=== PATIENT | male | born 1955 | race African-American/Black ===

== ENCOUNTER 2016-08-04 04:20 | Emergency (ER) | payer SELFPAY ==
[~2016-08-04] VITALS: Ht 170.2 cm; Wt 133.0 kg
[2016-08-04 04:23] VITALS: BP 220/110; PULSE 77; RESP 16; TEMP 98.9; O2SAT 100
[2016-08-04] MEDS ORDERED: KETOROLAC TROMETHAMINE 30 MG/ML (IVP) VIAL IV PUSH ONE (05:00)
--- NOTE | 2016-08-04 05:23 | RADRPT ---
EXAM DATE/TIME: 08/04/2016 04:56 [facility] COMPARISON: No previous studies available for comparison. INDICATIONS : Chest discomfort, swelling in lower extremities for 1 week MEDICAL HISTORY : None. SURGICAL HISTORY : None. ENCOUNTER: Initial ACUITY: 1 week PAIN SCORE: 0/10 LOCATION: Bilateral chest FINDINGS: PA and lateral views of the chest demonstrate the lungs to be symmetrically aerated without evidence of mass, infiltrate or effusion. The cardiomediastinal contours are unremarkable. Osseous structure s are intact. CONCLUSION: Normal examination. Avel Patel Jr., MD on August 04, 2016 at 5:21 Board Certified Radiologist. This report was verified electronically.
--- NOTE | 2016-08-04 05:24 | RADRPT ---
EXAM DATE/TIME: 08/04/2016 05:00 [facility] COMPARISON: No previous studies available for comparison. INDICATIONS : Left ankle pain, swelling for 1 week with no known injury MEDICAL HISTORY : None. SURGICAL HISTORY : None. ENCOUNTER: Initial ACUITY: 1 week PAIN SCORE: 10 LOCATION: Left entire ankle FINDINGS: 3 views of the ankle reveal abnormal appearance to the subtalar joints. There is osteophyte productio n and joint space narrowing. The remaining joint spaces are preserved. Soft tissue swelling surroundi ng the ankle. No discernible joint effusion. No fracture or dislocation. CONCLUSION: 1. Soft tissue swelling. 2. Degenerative changes involve the subtalar joints. This would suggest prior trauma. Avel Patel Jr., MD on August 04, 2016 at 5:22 Board Certified Radiologist. This report was verified electronically.
[2016-08-04 05:26] VITALS: BP 188/82; PULSE 65; RESP 18; O2SAT 97
[2016-08-04 05:33] LABS: AUTOMATED NEUTROPHIL # 2.8 TH/MM3 (1.8-7.7); BASOPHIL % 0.8 % (0.0-2.0); EOSINOPHIL # 0.4 TH/MM3 (0-0.4); EOSINOPHIL % 7.4 % (0.0-4.0); HEMATOCRIT 36.9 % (39.0-51.0); HEMO FLAGS DIFF FINAL; LYMPH % 35.9 % (9.0-44.0); LYMPHOCYTE # 2.1 TH/MM3 (1.0-4.8); MEAN CELL VOLUME 85.2 FL (80.0-100.0); MEAN CORPUSCULAR HEMOGLOBIN 28.6 PG (27.0-34.0); MEAN CORPUSCULAR HGB CONC 33.6 % (32.0-36.0); MONO % 7.7 % (0.0-8.0); NEUT % 48.2 % (16.0-70.0); PLATELET COUNT 243 TH/MM3 (150-450); RED BLOOD COUNT 4.34 MIL/MM3 (4.50-5.90); WHITE BLOOD COUNT 5.8 TH/MM3 (4.0-11.0)
[2016-08-04 05:45] LABS: APTT (PATIENT) 27.5 SEC (24.3-30.1); INTERNATIONAL NORMALIZED RATIO 0.9 RATIO; PROTHROMBIN TIME - PATIENT 10.3 SEC (9.8-11.6)
[2016-08-04 05:55] LABS: BICARBONATE 26.2 MEQ/L (21.0-32.0); POTASSIUM 3.8 MEQ/L (3.5-5.1)
[2016-08-04 06:07] VITALS: BP 175/83; PULSE 67
--- NOTE | 2016-08-04 06:13 | PD ---
HPI Chief Complaint: Musculoskeletal Complaint Time Seen by Provider: 04:36 Travel History International Travel<30 days: No Contact w/Intl Traveler<30days: No Traveled to known affect area: No History of Present Illness HPI Patient is a 61-year-old male who comes in complaining of pain and swelling to his left ankle. He says it has been going on for the past week. He says his boss told him to come in and get checked because he has been limping around work. He is concerned he might have gout. He has never had gout before. He says he has had an injury to this ankle when he was a teenager. She denies any chest pain or shortness of breath. He has not seen a doctor in several years. He denies pain to his calf or swelling of his leg. He denies fever or chills. PFSH Past Medical History Blood Disorders: No Anxiety: No Depression: No Cancer: No Cardiac Catheterization: Yes (NO INTERVENTION) Cardiovascular Problems: No High Cholesterol: No Chemotherapy: No Congestive Heart Failure: No Diabetes: No Diminished Hearing: No Endocrine: No Gastrointestinal Disorders: Yes (GI BLEED (BLEEDING STOMACH ULCERS)) GERD: Yes Immune Disorder: No Implanted Vascular Access Dvce: No Neurologic: No Psychiatric: No Immunizations Current: Yes Myocardial Infarction: No Radiation Therapy: No Tetanus Vaccination: Unknown Influenza Vaccination: No Past Surgical History Coronary Artery Bypass Graft: No Other Surgery: No Social History Alcohol Use: Yes (OCC) Tobacco Use: No Substance Use: No Allergies-Medications (Allergen,Severity, Reaction): Coded Allergies: No Known Allergies (Verified , 08/04/16) Reported Meds & Prescriptions Reported Meds & Active Scripts Active Ibuprofen 600 Mg Tab 600 Mg PO Q6H PRN Review of Systems Except as stated in HPI: all other systems reviewed are Neg General / Constitutional: No: Fever, Chills HENT: No: Headaches Cardiovascular: No: Chest Pain or Discomfort Respiratory: No: Shortness of Breath Gastrointestinal: No: Nausea, Vomiting Musculoskeletal: Positive: Edema, Pain Skin: No Change in Pigmentation Physical Exam Narrative GENERAL: Awake and alert, in no acute distress. SKIN: Focused skin assessment warm/dry. HEAD: Atraumatic. Normocephalic. EYES: Pupils equal and round. No scleral icterus. ENT: Mucous membranes pink and moist. NECK: Trachea midline. No JVD. CARDIOVASCULAR: Regular rate and rhythm. No murmur appreciated. RESPIRATORY: No accessory muscle use. Clear to auscultation. Breath sounds equal bilaterally. MUSCULOSKELETAL: No obvious deformities. No clubbing. No cyanosis. Swelling of the right ankle. Right ankle is tender to palpation on the lateral malleolus. Pedal pulses intact. No calf tenderness. No erythema or warmth of the joint. NEUROLOGICAL: Awake and alert. No obvious cranial nerve deficits. Motor grossly within normal limits. Normal speech. PSYCHIATRIC: Appropriate mood and affect; insight and judgment normal. Data Data Last Documented VS Vital Signs Date Time Temp Pulse Resp B/P Pulse Ox O2 Delivery O2 Flow Rate FiO2 08/04/16 06:35 16 08/04/16 06:07 67 175/83 08/04/16 05:26 97 Room Air 08/04/16 04:23 98.9 Orders Complete Blood Count With Diff (08/04/16 04:46) Basic Metabolic Panel (Bmp) (08/04/16 04:46) Act Partial Throm Time (Ptt) (08/04/16 04:46) Prothrombin Time / Inr (Pt) (08/04/16 04:46) Ankle, Complete ([id number]) (08/04/16 ) Us Leg Venous Doppler (08/04/16 ) Ketorolac Inj (Toradol Inj) (08/04/16 05:00) Chest, Pa & Lat (08/04/16 ) ^ Jose L Bandage (08/04/16 07:03) Labs Laboratory Tests Test 08/04/16 05:20 White Blood Count 5.8 TH/MM3 Red Blood Count 4.34 MIL/MM3 Hemoglobin 12.4 GM/DL Hematocrit 36.9 % Mean Corpuscular Volume 85.2 FL Mean Corpuscular Hemoglobin 28.6 PG Mean Corpuscular Hemoglobin 33.6 % Concent Red Cell Distribution Width 14.0 % Platelet Count 243 TH/MM3 Mean Platelet Volume 7.6 FL Neutrophils (%) (Auto) 48.2 % Lymphocytes (%) (Auto) 35.9 % Monocytes (%) (Auto) 7.7 % Eosinophils (%) (Auto) 7.4 % Basophils (%) (Auto) 0.8 % Neutrophils # (Auto) 2.8 TH/MM3 Lymphocytes # (Auto) 2.1 TH/MM3 Monocytes # (Auto) 0.4 TH/MM3 Eosinophils # (Auto) 0.4 TH/MM3 Basophils # (Auto) 0.0 TH/MM3 CBC Comment DIFF FINAL Differential Comment Prothrombin Time 10.3 SEC Prothromb Time International 0.9 RATIO Ratio Activated Partial 27.5 SEC Thromboplast Time Sodium Level 139 MEQ/L Potassium Level 3.8 MEQ/L Chloride Level 105 MEQ/L Carbon Dioxide Level 26.2 MEQ/L Anion Gap 8 MEQ/L Blood Urea Nitrogen 13 MG/DL Creatinine 1.12 MG/DL Estimat Glomerular Filtration 81 ML/MIN Rate Random Glucose 92 MG/DL Calcium Level 8.9 MG/DL [facility] Medical Decision Making Medical Screen Exam Complete: Yes Emergency Medical Condition: Yes Differential Diagnosis Fracture versus ankle sprain versus arthritis versus gout versus DVT Narrative Course Patient is a 61-year-old male comes in complaining of left ankle pain and swelling. Exam shows tenderness to the lateral malleolus. IV established labs sent. Labs show no acute abnormalities. Patient given Toradol for pain. X- ray of the ankle shows old injury with degenerative changes. Chest x-ray performed shows no evidence of pulmonary edema or cardiomegaly. Doppler ultrasound performed shows no evidence of DVT. Patient noted to have high blood pressure today. It came down with pain medicine. Patient informed of his high blood pressure advised he needs to follow-up with a primary doctor and possibly take medication. Patient given Jose L bandage. Advised to take Ibuprofen for pain. Advised to follow up in the community clinic regarding blood pressure. Advised to return to the ED as needed for any worsening symptoms. Diagnosis Primary Impression: Ankle swelling Qualified Code: M25.472 - Ankle swelling, left Referrals: [facility] call for appointment [facility] call for appointment Patient Instructions: Ankle Sprain (ED), Edema (ED), General Instructions Additional Instructions: Your blood pressure is very high. You need to follow up in the clinic for medication. Take Ibuprofen as needed for pain. Return to the ED as needed for any worsening symptoms. Scripts Ibuprofen 600 Mg Nsx108 Mg PO Q6H PRN (Pain/Inflammation) #20 TAB Ref 0 Prov:Fabiana Winchester MD 08/04/16 Disposition: 01 DISCHARGE HOME Condition: Stable Fabiana Winchester MD Aug 04, 2016 06:13
--- NOTE | 2016-08-04 06:17 | RADRPT ---
EXAM DATE/TIME: 08/04/2016 05:39 [facility] COMPARISON: No previous studies available for comparison. INDICATIONS : Left leg swelling and pain. MEDICAL HISTORY : Gastrointestinal bleed. Gastroesophageal reflux disease. Ulcers. SURGICAL HISTORY : Cardiac cath. ENCOUNTER: Initial ACUITY: 1 week PAIN SCORE: 7/10 LOCATION: Left leg. TECHNIQUE: Venous ultrasound of the leg was performed from the inguinal ligament to the proximal calf. Real-williams e, color Doppler and spectral tracing, compression and augmentation techniques were used. FINDINGS: There is normal compressibility of the deep venous system from the inguinal region to the proximal ca lf. No echogenic clot is seen in the lumen of the common femoral, femoral, popliteal, and posterior tibial veins. There is a normal response of the venous system to proximal and distal augmentation an d respiration. CONCLUSION: Normal examination. Avel Patel Jr., MD on August 04, 2016 at 6:13 Board Certified Radiologist. This report was verified electronically.
[2016-08-04 06:35] VITALS: RESP 16
[2016-08-04] MEDS ORDERED: IBUP-232 PO (07:03)
== END 2016-08-04 07:30 | disposition home or self-care (01) ==
LOC: NEPE 04:20
DX: M25.472 Effusion, left ankle (principal); M25.572 Pain in left ankle and joints of left foot; R07.89 Other chest pain; K21.9 Gastro-esophageal reflux disease without esophagitis
CPT/HCPCS: 71020; 73610; 80048; 85025; 85610; 85730; 93971; 96374; 99284; J1885

== ENCOUNTER 2016-12-07 10:14 | Emergency (ER) | payer OTHER ==
[~2016-12-07] VITALS: Ht 170.2 cm; Wt 130.0 kg
[~2016-12-07 10:14] MED LIST: IBUP-232 PO
[2016-12-07 10:15] VITALS: BP 177/83; PULSE 64; RESP 24; TEMP 98; O2SAT 98
[2016-12-07] MEDS ORDERED: oxyCODONE/ACETAMINOPHEN 5 MG/325 MG TAB PO ONE (10:30)
--- NOTE | 2016-12-07 10:34 | PD ---
HPI Chief Complaint: Injury Time Seen by Provider: 10:24 Travel History International Travel<30 days: No Contact w/Intl Traveler<30days: No Traveled to known affect area: No History of Present Illness HPI Patient is a 61-year-old male who presents to emergency room complaints of left- sided knee pain and ankle pain. he reports that he was at work yesterday and was working on repairing a truck tire, reports "one of the tires blew up and hit me in the left knee." Patient reports no trauma to head/neck. He was able to ambulate without difficulty after the accident. Reports that he woke up this morning and noticed increased swelling to his left knee. Patient currently is not on any anticoagulants - he is not on any blood thinners. PFSH Past Medical History Blood Disorders: No Anxiety: No Depression: No Cancer: No Cardiac Catheterization: Yes (NO INTERVENTION) Cardiovascular Problems: No High Cholesterol: No Chemotherapy: No Congestive Heart Failure: No Diabetes: No Diminished Hearing: No Endocrine: No Gastrointestinal Disorders: Yes (GI BLEED (BLEEDING STOMACH ULCERS)) GERD: Yes Immune Disorder: No Implanted Vascular Access Dvce: No Neurologic: No Psychiatric: No Immunizations Current: Yes Myocardial Infarction: No Radiation Therapy: No Ulcer: Yes Tetanus Vaccination: Unknown Past Surgical History Coronary Artery Bypass Graft: No Other Surgery: No Social History Alcohol Use: Yes (OCC) Tobacco Use: No Substance Use: No Allergies-Medications (Allergen,Severity, Reaction): Coded Allergies: No Known Allergies (Verified , 12/07/16) Reported Meds & Prescriptions Reported Meds & Active Scripts Active Percocet (Oxycodone-Acetaminophen) 5-325 mg Tab 1 Tab PO Q6H PRN Review of Systems General / Constitutional: No: Fever Eyes: No: Visual changes HENT: No: Headaches Cardiovascular: No: Chest Pain or Discomfort Respiratory: No: Shortness of Breath Gastrointestinal: No: Abdominal Pain Genitourinary: No: Dysuria Musculoskeletal: Positive: Limited ROM, Pain (knee and left ankle pain) Skin: No Rash Neurologic: No: Weakness Psychiatric: No: Depression Endocrine: No: Polydipsia Hematologic/Lymphatic: No: Easy Bruising Physical Exam Narrative GENERAL: mild distress SKIN: Focused skin assessment warm/dry. HEAD: Atraumatic. Normocephalic. EYES: Pupils equal and round. No scleral icterus. No injection or drainage. ENT: No nasal bleeding or discharge. Mucous membranes pink and moist. NECK: Trachea midline. No JVD. CARDIOVASCULAR: Regular rate and rhythm. No murmur appreciated. RESPIRATORY: No accessory muscle use. Clear to auscultation. Breath sounds equal bilaterally. GASTROINTESTINAL: Abdomen soft, non-tender, nondistended. Hepatic and splenic margins not palpable. MUSCULOSKELETAL: No obvious deformities. No clubbing. No cyanosis. normal rom to left hip, normal rom to left knee, pain with passive rom to left ankle, no obvious deformities, pulses intact, neurovascularly intact, no signs of open fracture. NEUROLOGICAL: Awake and alert. No obvious cranial nerve deficits. Motor grossly within normal limits. Normal speech. PSYCHIATRIC: Appropriate mood and affect; insight and judgment normal. Data Data Last Documented VS Vital Signs Date Time Temp Pulse Resp B/P Pulse Ox O2 Delivery O2 Flow Rate FiO2 12/07/16 10:15 98.0 64 24 177/83 98 Room Air Orders Knee, Complete (4vws) (12/07/16 ) Ankle, Complete ([id number]) (12/07/16 ) Ice/Cold Pack (12/07/16 10:28) Oxycodone-Acetamin 5-325 Mg (Percocet (12/07/16 10:30) MDM Medical Decision Making Medical Screen Exam Complete: Yes Emergency Medical Condition: Yes Interpretation(s) Vital Signs Date Time Temp Pulse Resp B/P Pulse Ox O2 Delivery O2 Flow Rate FiO2 12/07/16 10:15 98.0 64 24 177/83 98 Room Air Differential Diagnosis Differential includes ankle sprain/fracture, knee sprain/fracture Narrative Course 61-year-old male who presents to emergency with complaints of left-sided knee and ankle pain and swelling after tire hit his leg yesterday while at work. Patient was able to ambulate after event, reports that he is here for workman's comp evaluation. X-rays of the left ankle and knee ordered. Last Impressions Knee X-Ray 12/07/16 0000 Signed Impressions: Service Date/Time: Wednesday, December 07, 2016 10:54 - CONCLUSION: Mild patellofemoral arthropathy. 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 Darnell Hardy MD Ankle X-Ray 12/07/16 0000 Signed Impressions: Service Date/Time: Wednesday, December 07, 2016 10:50 - CONCLUSION: 1. Advanced arthropathy of the subtalar joints characteristic of degenerative joint disease. 2. Marked generalized soft tissue swelling 3. No evidence of acute fracture or dislocation 4. Chronic plantar tendinopathy with calcification. Darnell Hardy MD Patient with no acute fractures, I did give patient a copy of his x-rays. He will follow-up with orthopedic surgery and return to emergency room as needed. Diagnosis Primary Impression: Ankle sprain Qualified Code: S93.402A - Sprain of left ankle, unspecified ligament, initial encounter Additional Impressions: Knee sprain Qualified Code: S83.92XA - Sprain of left knee, unspecified ligament, initial encounter Ankle swelling Qualified Code: M25.472 - Left ankle swelling Patellofemoral arthritis of left knee Patient Instructions: General Instructions Departure Forms: Tests/Procedures, Work Release Enter return to work date: Dec 12, 2016 Additional Instructions: Please follow up with orthopedic surgeon, please bring a copy of your xray reports to your doctor's office for follow up Return to ER as needed Rest/ice and elevate your left leg Follow up with your primary care doctor Do not drive while taking narcotic pain medications Scripts Oxycodone-Acetaminophen (Percocet)5-325 mg Tab1 Tab PO Q6H PRN (PAIN) #10 TAB Ref 0 Prov:Yuly Jimenez DO 12/07/16 Disposition: 01 DISCHARGE HOME Condition: Stable Yuly Jimenez DO Dec 07, 2016 10:34
--- NOTE | 2016-12-07 11:26 | RADRPT ---
EXAM DATE/TIME: 12/07/2016 10:50 [facility] COMPARISON: ANKLE LEFT COMPLETE ([id number]), August 04, 2016, 5:00. INDICATIONS : Patient twisted left ankle yesterday ,pain plantar surface and entire ankle. MEDICAL HISTORY : Gastrointestinal bleed. Gastroesophageal reflux disease. Ulcers SURGICAL HISTORY : cardiac cath ENCOUNTER: Initial ACUITY: 1 day PAIN SCORE: 7/10 LOCATION: Left ankle FINDINGS: Three view exam was performed of the left ankle. Advanced arthropathy remains evident the subtalar constance ints. There is significant joint space narrowing marginal spurring and subchondral sclerosis. Generalized soft tissue swelling especially along the lateral aspect of the ankle is still evident. Tibiotalar joint appears intact without evidence of significant free. A calcification is seen in the plantar tendon attachment on the calcaneus. CONCLUSION: 1. Advanced arthropathy of the subtalar joints characteristic of degenerative joint disease. 2. Marked generalized soft tissue swelling 3. No evidence of acute fracture or dislocation 4. Chronic plantar tendinopathy with calcification. Darnell Hardy MD on December 07, 2016 at 11:23 Board Certified Radiologist. This report was verified electronically.
--- NOTE | 2016-12-07 11:53 | RADRPT ---
EXAM DATE/TIME: 12/07/2016 10:54 [facility] COMPARISON: No previous studies available for comparison. INDICATIONS : Patient struck in left knee yesterday by tire rim. MEDICAL HISTORY : Gastrointestinal bleed. Gastroesophageal reflux disease. Ulcers SURGICAL HISTORY : cardiac catheterization ENCOUNTER: Initial ACUITY: 1 day PAIN SCORE: 8/10 LOCATION: Left knee FINDINGS: Four view examination of the left knee demonstrates no evidence of fracture or dislocation. Mild art hropathy is noted at the patellofemoral joint. There is marginal spurring and mild subchondral sclero sis. Bony mineralization is normal. The articular surfaces are otherwise intact. The suprapatellar soft tissues have a normal configuration. Intramedullary calcification in the tibial shaft is noted. CONCLUSION: Mild patellofemoral arthropathy. 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 Darnell Hardy MD on December 07, 2016 at 11:25 Board Certified Radiologist. This report was verified electronically.
[2016-12-07] MEDS ORDERED: PERC5TAB12 PO (12:37)
== END 2016-12-07 13:13 | disposition home or self-care (01) ==
LOC: NEPD 10:14
DX: S93.402A Sprain of unspecified ligament of left ankle, initial encounter (principal); S83.92XA Sprain of unspecified site of left knee, initial encounter; W22.8XXA Striking against or struck by other objects, initial encounter
CPT/HCPCS: 73564; 73610; 99283